=== PATIENT | female | born 1955 | race Caucasian/White ===

== ENCOUNTER 2018-01-31 07:15 | Day surgery (SDC) | payer OTHER ==
[2018-01-31 08:13] VITALS: TEMP 97.1; O2SAT 100
[2018-01-31] MEDS ORDERED: Propofol 10 mg/ml Inj (20 ML) ONE ×2 (08:56→09:16)
[2018-01-31] MEDS ORDERED: Lactated Ringer's 1,000 ML IV ONE ×2 (09:05)
--- NOTE | 2018-01-31 09:14 | CP.SDSHP ---
Same Day Surgery H & P - History Proposed Procedure: COLONSCOPY Pre-Op Diagnosis: SEE NOTES - Previous Medical/Surgical History Cardiac: Hypertension Endocrine/Metabolic: Thyroid Disease, Other Neuro: Other Misc: Other Pain: 4.Moderate Pain - Allergies Allergies: Allergies No Known Allergies Allergy (Verified 01/31/18 07:54) - Physical Exam General Appearance: N Vital Signs: Vital Signs 01/31/18 07:45 Temperature 97.1 F L Pulse Rate 80 Respiratory 20 Rate Blood Pressure 141/89 O2 Sat by Pulse 100 Oximetry Mental Status: Alert & Oriented x3 Neuro: WNL Heart: Other Lungs: WNL GI: Other - {Optional Preform as Required} Breast: WNL Abdomen: Other Rectal: Other Integument: WNL : WNL Ortho: WNL ENT: WNL - Impression Pt. Evaluated Today:Candidate for Anesthesia & Procedure: Yes - Date & Time Time: 09:14 Short Stay Discharge - Short Stay Discharge Admitting Diagnosis/Reason for Visit: SCREENING Disposition: HOME/ ROUTINE
[2018-01-31 10:34] VITALS: PULSE 94
[2018-01-31 10:37] VITALS: BP 126/74; RESP 20
== END 2018-01-31 10:35 | disposition home or self-care (01) ==
LOC: C.ENDO 07:15
PROVIDERS: ATTEND Specialist
DX: K52.9 Noninfective gastroenteritis and colitis, unspecified (principal); K58.9 Irritable bowel syndrome, unspecified
CPT/HCPCS: 45380; 88305; J2704; J7120

== ENCOUNTER 2018-10-31 07:31 | Day surgery (SDC) | payer OTHER ==
[2018-10-31 07:52] VITALS: BMI 21.9
[2018-10-31 08:06] VITALS: O2SAT 100
[2018-10-31] MEDS ORDERED: Propofol 10 mg/ml Inj (20 ML) ONE (09:37)
--- NOTE | 2018-10-31 09:40 | CP.SDSHP ---
Same Day Surgery H & P - History Proposed Procedure: COLONSCOPY Pre-Op Diagnosis: SEE NOTES - Previous Medical/Surgical History Cardiac: Hypertension Endocrine/Metabolic: Diabetes, Other Misc: Other Pain: 4.Moderate Pain - Allergies Allergies: Allergies No Known Allergies Allergy (Verified 01/31/18 07:54) - Physical Exam General Appearance: N Vital Signs: Vital Signs 10/31/18 07:52 Temperature 97.8 F Pulse Rate 80 Respiratory 20 Rate Blood Pressure 126/82 O2 Sat by Pulse 100 Oximetry Mental Status: Alert & Oriented x3 Neuro: WNL Heart: Other Lungs: WNL GI: Other - {Optional Preform as Required} Breast: WNL Abdomen: Other Rectal: Other Integument: WNL : WNL Ortho: Other ENT: WNL - Impression Pt. Evaluated Today:Candidate for Anesthesia & Procedure: Yes - Date & Time Time: 09:39 Short Stay Discharge - Short Stay Discharge Admitting Diagnosis/Reason for Visit: CHANGE IN BOWEL HABIT/ABN WEIGHT LOSS Disposition: HOME/ ROUTINE
[2018-10-31 10:19] VITALS: TEMP 97.7
[2018-10-31] MEDS ORDERED: Belladonna-Phenobarbital PO ONE (10:30)
[2018-10-31 10:55] VITALS: BP 116/79; PULSE 95; RESP 12
== END 2018-10-31 11:20 | disposition home or self-care (01) ==
LOC: C.ENDO 07:31
PROVIDERS: ATTEND Specialist
DX: K58.9 Irritable bowel syndrome, unspecified (principal); R19.4 Change in bowel habit; K64.8 Other hemorrhoids; E11.9 Type 2 diabetes mellitus without complications; I10 Essential (primary) hypertension
CPT/HCPCS: 45380; 82948; 88305; J2704